=== PATIENT | male | born 1950 | race Hispanic/Latino ===

== ENCOUNTER 2024-04-16 16:40 | Emergency (ER) | payer MEDICARE ==
[~2024-04-16] VITALS: Ht 177.8 cm; Wt 93.4 kg
--- NOTE | 2024-04-16 17:11 | ERN ---
General Chief Complaint: Abnormal Labs Stated Complaint: HIGH POTASSIUM Time Seen by MD: 16:41 Source: patient History of Present Illness Initial Comments Patient is a 73-year-old male coming in to be evaluated for abnormal labs. Per patient he was told by his PCP to follow up immediately at the nearest ER due to elevated potassium. Patient does have a history of chronic renal failure. He does not have any other complaints except for left knee discomfort. Allergies: Coded Allergies: No Known Drug Allergies (Unverified Allergy, Unknown, 04/16/24) Past Medical History Past Medical History: Anemia, Diabetes-Type II, High Cholesterol, Hypertension, Prostatitis Past Surgical History: None ROS Dictation CONSTITUTIONAL: No chills, no fever, no weakness, no diaphoresis, no malaise. HEAD/FACE: No signs of trauma. EENT: No eye pain, no blurred vision, no tearing, no double vision, no ear pain, no ear discharge, no nose pain, no nasal congestion, no throat pain, no throat swelling, no mouth pain. RESPIRATORY: No cough, no orthopnea, no SOB, no stridor, no wheezing. CARDIOVASCULAR: No chest pain, no edema, no palpitations, no syncope. GASTROINTESTINAL/ABDOMINAL: No abdominal pain, no constipation, no diarrhea, no nausea, no vomiting. GENITOURINARY: No abnormal discharge, no dysuria, no frequent urination, no hematuria. No complaints of pain in the genitals. MUSCULOSKELETAL: No back pain, no gout, no joint pain, no joint swelling, no muscle pain, no muscle stiffness, no neck pain. INTEGUMENTARY: No change in color, no change in hair/nails, no dryness, no lesion, no lumps, no rash. NEUROLOGICAL/PSYCH: No anxiety, not depressed, no emotional problem, no headache, no numbness, no pre-existing deficit, no history of seizures, no tremors, no weakness. HEMATOLOGIC/LYMPHATIC: Not anemic, no history of blood clots, no apparent bleeding, no bruising, glands not swollen. All Systems Negative, Except as Noted. Physical Exam Physical Exam Dictation VITAL SIGNS: Reviewed. GENERAL APPEARANCE: Alert, oriented x3, no acute distress, obese. HEAD AND FACE: Non-traumatic. EYES: PERRL, pink conjunctivas, eyelid no trauma, anterior chamber clear. EARS: Pinnas intact and no signs of trauma or erythema. Ear canals clear and no discharge. TMs no erythema. NOSE: No discharge, no bleeding. OROPHARYNX: Mouth normal, teeth no caries, tongue pink. Pharynx clear, no erythema. Tonsils no exudates, no abscesses noted. Mucous membrane moist. NECK: Supple, non-tender, no thyromegaly, no masses, no JVD, no bruits. BREAST: Deferred. CHEST: No tenderness, no crepitus, no paradoxical movement, no retractions. LUNGS: Clear, well-ventilated, symmetric, no rales, no wheezing, no rhonchi, no stridor, good breath sounds bilaterally. HEART: Regular rate, regular rhythm, no murmur, no gallops. VASCULAR: No peripheral edema. ABDOMEN: Soft, positive bowel sounds, nondistended, no guarding, nontender, no rebound, no masses no hepatomegaly, no splenomegaly, no Beck's sign, no hernias. RECTAL: Deferred. GENITAL: Deferred. NEUROLOGICAL: Normal speech, gross motor function intact, gross sensory function intact. MUSCULOSKELETAL: Neck nontender, full range of motion, back nontender, full range of motion. EXTREMITIES: Nontender, full range of motion. SKIN: Color pink, dry, no turgor, no rash, no lacerations, no abrasions, no contusions. LYMPHATICS: Deferred. Results Laboratory and Microbiology Lab and Micro Result Laboratory Tests Test 04/16/24 17:11 White Blood Count 7.8 K/uL (4.8-10.8) Red Blood Count 3.70 MIL/uL (4.50-6.20) L Hemoglobin 11.0 g/dL (14.0-18.0) L Hematocrit 34.7 % (42-54) L Mean Corpuscular Volume 93.8 fL (79-99) Mean Corpuscular Hemoglobin 29.7 pg (27.0-33.0) Mean Corpuscular Hemoglobin Concent 31.7 g/dL (32.0-36.0) L Red Cell Distribution Width 13.2 % (11.0-15.5) Platelet Count 206 K/uL (130-400) Mean Platelet Volume 9.6 fL (7.5-10.5) Immature Granulocyte % (Auto) 0.4 % (0-1) Neutrophils (%) (Auto) 69.2 % (40.0-77.0) Lymphocytes (%) (Auto) 16.0 % (21.0-51.0) L Monocytes (%) (Auto) 10.8 % (3.0-13.0) Eosinophils (%) (Auto) 3.1 % (0.0-8.0) Basophils (%) (Auto) 0.5 % (0.0-5.0) Neutrophils # (Auto) 5.4 K/uL (1.8-7.7) Lymphocytes # (Auto) 1.3 K/uL (1.0-4.8) Monocytes # (Auto) 0.8 K/uL (0.1-1.0) Eosinophils # (Auto) 0.24 K/uL (0.00-0.70) Basophils # (Auto) 0.04 K/uL (0.00-0.20) Absolute Immature Granulocyte (auto 0.03 K/uL (0-1) Nucleated Red Blood Cells 0.0 % (0.0-0.19) Sodium Level 138 mmol/L (136-145) Potassium Level 5.9 mmol/L (3.5-5.1) H Chloride Level 110 mmol/L (101-111) Carbon Dioxide Level 19 mmol/L (21-32) L Blood Urea Nitrogen 42 mg/dL (7-18) H Creatinine 1.9 mg/dL (0.5-1.3) H Glomerular Filtration Rate Calc 36 mL/min (>90) Random Glucose 146 mg/dL (70-105) H Total Calcium 8.6 mg/dL (8.5-10.1) Labs Reviewed?: Yes EKG/XRAY/US/CT/MRI X-RAY Comment [id number] [address] IMAGING REPORT Signed PATIENT: REHANA HANDY MR#: [id number] : 1950 SEX: M AGE: 73 LOCATION: [facility] ORDER 11 STATUS: REG ER REPORT#: [id number] SERVICE 10 REASON: knee xray ORDERING PHYSICIAN: JAYDE PHAM MD PROCEDURE: KNEE 3V LT - KNEE 3VWS LT LEFT KNEE RADIOGRAPHS - 3 VIEWS INDICATION: Pain COMPARISON: None FINDINGS: AP, lateral, and oblique views. No fracture or dislocation identified. No significant joint effusion is present. Overlying soft tissues appear normal. No radiopaque foreign body noted. IMPRESSION: No evidence for fracture or dislocation. DICTATED BY: GIBRAN VILLAFANA MD DATE: 04/16/241749 ELECTRONICALLY SIGNED BY: GIBRAN VILLAFANA MD DATE: 04/16/241752 MDM MDM: DIFFERENTIAL DIAGNOSIS: ABNORMAL LABS, HYPERKALEMIA, CHRONIC RENAL FAILURE PATIENT IS A 73-YEAR-OLD MALE COMING IN TO BE EVALUATED FOR ELEVATED POTASSIUM. PER PATIENT HE WAS TOLD TO SEEK IMMEDIATE HELP WITH THE NEAREST ER DUE TO POTASSIUM WAS BEING 6.7 AN OUTPATIENT LAB. HERE [facility] THE POTASSIUM IS 5.9. PATIENT RECEIVED A HYPERKALEMIA PROTOCOL. SPOKE TO HIS DENTAL APPLIANCE MECHANIC DR. DING WHO WAS COVERING FOR DR. LAURA HE STATES THAT PATIENT WAS OKAY TO GO HOME WITH [facility] WELL HOLD OFF ON HIS LISINOPRIL. PATIENT WILL BE DISCHARGED IN STABLE CONDITION WITH A DIAGNOSIS OF CHRONIC RENAL FAILURE WITH ELEVATED POTASSIUM. ED Course Orders Procedure Category Date Status Time Cbc With Differential LAB 04/16/24 Complete 16:49 Basic Metabolic Panel LAB 04/16/24 Complete 16:49 Knee 3vws Lt RAD 04/16/24 Resulted 17:11 Insulin Regular, PHA 04/16/24 In Process Human 3ml (Humulin R 18:00 Albuterol 0.083% PHA 04/16/24 In Process 2.5mg/3ml (Proventil 18:00 Sodium Polystyr Sulf PHA 04/16/24 In Process 15gm (Kayexalate 15 18:00 Dextrose 50%-Water PHA 04/16/24 In Process (D50w) 18:00 Current Medications Medications (Trade) Dose Ordered Sig/Vicky Route PRN Reason Start Time Stop Time Status Last Admin Dose Admin Albuterol Sulfate (Proventil 0.083% 2.5mg/3ml) 10 mg ONCE IH 04/16/24 18:00 04/17/24 17:59 04/16/24 18:36 Dextrose (D50w) 25 ml ONCE IV 04/16/24 18:00 04/17/24 17:59 Insulin Human Regular (humuLIN R 100 UNIT/ML 3ML) 5 unit ONCE IV 04/16/24 18:00 04/17/24 17:59 Sodium Polystyrene Sulfonate (kayEXALate 15 GM/60 ML) 15 gm Q2H PO 04/16/24 18:00 04/16/24 20:01 Vital Signs Date Time Temp Pulse Resp B/P (MAP) Pulse Ox O2 Delivery O2 Flow Rate FiO2 04/16/24 18:37 57 18 04/16/24 16:50 98.6 69 18 134/58 97 0 DX & DISP Disposition: Discharge Departure Impression: Primary Impression: Chronic renal failure Additional Impression: Hyperkalemia Condition: Stable Scripts Sodium Zirconium Cyclosilicate (Lokelma) 10 Gram Powd.pack 1 PACKET PO DAILY for 7 Days, #7 PACKET 0 Refills Prov: JAYDE PHAM MD 04/16/24 Additional Instructions: FOLLOW-UP WITH PRIMARY CARE PROVIDER IN 1 TO 2 DAYS. TAKE MEDICATIONS DIRECTED HERE IN THE EMERGENCY ROOM. OKAY TO CONTINUE HOME MEDICATIONS UNLESS OTHERWISE DISCUSSED DURING YOUR VISIT IN THE EMERGENCY ROOM TODAY. RETURN TO YOUR NEAREST EMERGENCY ROOM IF SYMPTOMS WORSEN OR IF THERE IS NO IMPROVEMENT. CALL 911 IF YOU NEED IMMEDIATE ASSISTANCE. TAKE TYLENOL [id number]-[id number] NEEDED AND IF NO CONTRAINDICATIONS ARE PRESENT. INCREASE ORAL HYDRATION. A W OUND CULTURE OR URINE CULTURE WAS ORDERED HERE IN THE EMERGENCY ROOM DEPARTMENT PLEASE FOLLOW-UP WITH PRIMARY CARE PROVIDER AND ADVISE THEM TO GET REPEAT PORTS FROM OUR FACILITY. IF YOU HAD ANY DAVID WRAP/SPLINTS THAT WERE APPLIED HERE, PLEASE DO NOT REMOVE THEM UNTIL YOU SEE YOUR PRIMARY CARE OR SPECIALTY. REFERRALS: Referrals: SELF,REFERRAL (PCP) NEELA LAURA MD Time of Disposition: 18:41 JAYDE PHAM MD Apr 16, 2024 17:11
[2024-04-16 17:28] LABS: BASOPHILS # (AUTO) 0.04 K/uL (0.00-0.20); BASOPHILS % (AUTO) 0.5 % (0.0-5.0); EOSINOPHILS # (AUTO) 0.24 K/uL (0.00-0.70); EOSINOPHILS % (AUTO) 3.1 % (0.0-8.0); HEMATOCRIT 34.7 % (42-54); IMMATURE GRANULOCYTE ABSOLUTE 0.03 K/uL (0-1); LYMPHOCYTES # (AUTO) 1.3 K/uL (1.0-4.8); MEAN CORPUSCULAR HEMOGLOBIN 29.7 pg (27.0-33.0); MEAN CORPUSCULAR HGB CONC 31.7 g/dL (32.0-36.0); MEAN CORPUSCULAR VOLUME 93.8 fL (79-99); MONOCYTES # (AUTO) 0.8 K/uL (0.1-1.0); MONOCYTES % (AUTO) 10.8 % (3.0-13.0); NEUTROPHILS # (AUTO) 5.4 K/uL (1.8-7.7); NEUTROPHILS % (AUTO) 69.2 % (40.0-77.0); PLATELET COUNT (AUTO) 206 K/uL (130-400); RED CELL DISTRIBUTION WIDTH 13.2 % (11.0-15.5); WHITE BLOOD COUNT (AUTO) 7.8 K/uL (4.8-10.8)
--- NOTE | 2024-04-16 17:39 | NUR ---
NO ANSWER FOR BEDDING
[2024-04-16 17:41] LABS: CREATININE 1.9 mg/dL (0.5-1.3); POTASSIUM 5.9 mmol/L (3.5-5.1)
--- NOTE | 2024-04-16 17:53 | HMCIMG ---
LEFT KNEE RADIOGRAPHS - 3 VIEWS INDICATION: Pain COMPARISON: None FINDINGS: AP, lateral, and oblique views. No fracture or dislocation identified. No significant joint effusion is present. Overlying soft tissues appear normal. No radiopaque foreign body noted. IMPRESSION: No evidence for fracture or dislocation.
[2024-04-16] MEDS: ALBUTEROL 0.083% 2.5 MG/3 ML INH IH SCH (18:36)
[2024-04-16 18:37] VITALS: PULSE 57; RESP 18
[2024-04-16] MEDS: DEXTROSE 50%-WATER 50 ML DISP.SYRIN IV SCH (18:39)
[2024-04-16] MEDS: INSULIN humuLIN R 100 UNIT/ML 3ML IV SCH (18:39)
[2024-04-16] MEDS: kayEXALate 15GM/60ML PO SCH (18:39)
[2024-04-16] MEDS ORDERED: SODI10PO2 PO (18:41)
[2024-04-16 18:57] VITALS: BP 131/62; PULSE 68; RESP 18; TEMP 98.6; O2SAT 97
== END 2024-04-16 19:20 | disposition home or self-care (01) ==
LOC: EDH 16:40
DX: I12.9 Hypertensive chronic kidney disease with stage 1 through stage 4 chronic kidney disease, or unspecified chronic kidney disease (principal); E11.22 Type 2 diabetes mellitus with diabetic chronic kidney disease; N18.9 Chronic kidney disease, unspecified; E87.5 Hyperkalemia; E78.00 Pure hypercholesterolemia, unspecified
CPT/HCPCS: 99284; 96374; 96375; 80048; 85025; 36415; 73562; 94640; J1815; J7070

== ENCOUNTER → 2024-08-23 | Outpatient (CLI) | payer OTHER ==
[~2024-08-23] MED LIST: SODI10PO2 PO
--- NOTE | 2024-08-24 11:41 | HMCIMG ---
EXAM: CT Cardiac calcium scoring. CLINICAL HISTORY: Screening. TECHNIQUE: Thin collimated axial CT cardiac images were obtained. A CT scan is done according to ALARA (As Low As Reasonably Achievable). CONTRAST: None. COMPARISON: None provided. FINDINGS: Calcium Score: VESSEL Number of lesions Volume mm3 Equi. Mass/mg Calcium score LM 1 20.0 - 27.6 LAD 5 49.7 - 86.1 LCX 1 9.7 - 10.1 RCA 1 4.0 - 5.9 Total 8 83.4 - 129.7 IMPRESSION: The total calcium score is 129.7. This corresponds to the 55th percentile. /[place]
== END | disposition home or self-care (01) ==
LOC: RAH 14:09
PROVIDERS: ATTEND Internal Medicine Cardiovascular Disease
DX: Z12.6 Encounter for screening for malignant neoplasm of bladder (principal)
CPT/HCPCS: 75571